=== PATIENT | female | born 1990 | race Caucasian/White ===

== ENCOUNTER 2024-07-22 11:01 | Day surgery (SDC) | payer OTHER ==
--- NOTE | 2024-07-22 11:26 | HP ---
PROCEDURE DATE: 07/22/2024 HISTORY OF PRESENT ILLNESS: Tae has had 2 bad episodes of nausea and vomiting and not eating for a week, pain in right upper quadrant, radiates to back. Had intermittent constipation during episodes. US showed cholelithiasis. Patient has history of gastric sleeve in the past. PAST MEDICAL HISTORY: Hyperlipidemia and hypertension. CURRENT MEDICATIONS: Lisinopril, Dyazide, atorvastatin, and Twirla. ALLERGIES: NKDA. PAST SURGICAL HISTORY: Had gastric sleeve surgery in the past. SOCIAL HISTORY: No smoking or alcohol abuse. REVIEW OF SYSTEMS: 12 systems reviewed. No chest pain or palpitations. Other systems negative or noncontributory other than above and per preadmission questionnaire. PHYSICAL EXAMINATION: Height 5'6", BMI 33. GENERAL: No acute distress. HEENT: Sclerae nonicteric. NECK: No JVD. CHEST: Equal excursion. Nonlabored breathing. CVS: Regular rate and rhythm. ABDOMEN: Soft. No peritoneal signs. EXTREMITIES: No cyanosis or edema. NEURO: Alert and oriented, moving extremities symmetrically. PSYCH: Appropriate mood and affect. SKIN: Dry. IMPRESSION: ACUTE EXACERBATION OF CHRONIC CHOLECYSTITIS, SYMPTOMATIC CHOLELITHIASIS. RECOMMEND CHOLECYSTECTOMY. Risks and benefits explained in detail, but not limited to, bleeding; infection; risk of trocar injury or hernia; risk of bile leak, bile duct injury, or retained stone or sludge possibly requiring endoscopic retrograde cholangiopancreatography or open procedure; risk of anesthesia, deep vein thrombosis, pulmonary embolism, or pneumonia; risks of aches, pains, bloating, constipation and/or loose stools possibly chronic in nature; possibly no improvement in pre-op symptoms possibly requiring further work-up, studies, endoscopy, or other studies or referrals. Will proceed with laparoscopic cholecystectomy, possible open as an outpatient. Otherwise, continue medication for hypertension and hyperlipidemia.
[2024-07-22 11:32] VITALS: RESP 16
[2024-07-22 11:32] LABS: HCG URINE TEST NEGATIVE (NEGATIVE)
[2024-07-22] MEDS ORDERED: MEFOXIN 2 GM PREMIX** 2 GM/50 ML ML IV ONE (11:45)
[2024-07-22] MEDS ORDERED: Lactated Ringers 1,000 ML IV ONE ×2 (11:46→14:31)
[2024-07-22] MEDS: Lactated Ringers 1,000 ML IV SCH (11:47)
[2024-07-22] MEDS: MEFOXIN 2 GM PREMIX** 2 GM/50 ML ML IV SCH (11:47)
[2024-07-22] MEDS ORDERED: Pepcid 20 MG VIAL IV ONE (12:06)
[2024-07-22] MEDS ORDERED: Transderm Scop 1.5MG Patch ONE (12:06)
[2024-07-22] MEDS ORDERED: Reglan 10 MG/2 ML ONE (12:06)
[2024-07-22 12:07] LABS: BASOPHIL % 0.9 % (0.1-1.2); Basophil (Absolute #) 0.05 x10^3/uL (0.01-0.08); Eosinophil % 2.2 % (0.7-5.8); Eosinophil (Absolute #) 0.12 x10^3/uL (0.04-0.36); Hematocrit 37.4 % (34.1-44.9); Hemoglobin 12.8 g/dL (11.2-15.7); IMMATURE GRAN # 0.01 x10^3u/L (0.001-0.031); IMMATURE GRAN % 0.2 % (0.001-0.429); Lymphocyte (Absolute #) 2.31 x10^3/uL (1.18-3.74); Lymphocytes % 41.6 % (19.3-51.7); Mean Corpuscular Hemoglobin 30.5 pg (25.6-32.2); Mean Corpuscular Hgb Concent. 34.2 g/dL (32.2-35.5); Mean Platelet Volume 9.9 fL (9.4-12.3); Monocyte (Absolute #) 0.46 x10^3/uL (0.24-0.86); Monocytes % 8.3 % (4.7-12.5); Neutrophil % 46.8 % (34.0-71.1); Platelet Count 357 x10^3/uL (182-369); Red Cell Distribution Width 13.3 % (11.7-14.4); White Blood Count 5.6 x10^3/uL (3.98-10.04)
[2024-07-22] MEDS: Pepcid 20 MG VIAL IV ONE (12:07)
[2024-07-22] MEDS: Transderm Scop 1.5MG Patch TOP PRN (12:07)
[2024-07-22] MEDS: Reglan 10 MG/2 ML IV ONE (12:07)
[2024-07-22] MEDS ORDERED: Sensorcaine 0.25% 10 ML ONE ×2 (13:04→14:00)
[2024-07-22] MEDS ORDERED: Zofran 4 MG/2 ML VIAL ONE (13:54)
[2024-07-22] MEDS ORDERED: Decadron 4 MG INJ ONE (13:54)
[2024-07-22] MEDS ORDERED: ROCURONIUM BROMIDE IV ONE (13:54)
[2024-07-22] MEDS ORDERED: Xylocaine-Mpf 2% 5 Ml Vial ONE (13:54)
[2024-07-22] MEDS ORDERED: BRIDION 200MG/2ML IV ONE (13:54)
[2024-07-22] MEDS ORDERED: TORAdol 30 mg Injection ONE ×2 (13:54→15:21)
[2024-07-22] MEDS ORDERED: SUBLIMAZE 100 MCG/2 ML ONE ×2 (13:54→15:26)
[2024-07-22] MEDS ORDERED: DIPRIVAN 200 MG/20 ML IV ONE (13:54)
[2024-07-22 14:06] LABS: ANION GAP 13.2 MEQ/L (5-15); Calcium 9.4 mg/dL (8.4-10.2); Creatinine 1 0.68 mg/dL (0.52-1.04); EST GLOMERULAR FILTRATION RATE 117.1 ML/MIN; Potassium 3.9 mmol/L (3.5-5.1)
[2024-07-22] MEDS ORDERED: Ephedrine Sulfate 50 MG/ML ONE (14:22)
[2024-07-22] MEDS ORDERED: MORPHINE SULFATE 2 MG INJ ONE (15:00)
[2024-07-22] MEDS ORDERED: Hydromorphone 1 mg/ml Injection ONE (15:26)
[2024-07-22 16:18] VITALS: O2SAT 100
[2024-07-22 16:27] VITALS: BP 108/72; PULSE 77; TEMP 97.2
--- NOTE | 2024-07-23 11:07 | OP ---
SURGERY DATE/TIME: 07/22/2024 [id number] PREOPERATIVE DIAGNOSIS: Exacerbation of chronic cholecystitis, symptomatic cholelithiasis. POSTOPERATIVE DIAGNOSIS: Exacerbation of chronic cholecystitis, symptomatic cholelithiasis. PROCEDURE: Laparoscopic cholecystectomy. SURGEON: Corby Ortega MD ANESTHESIA: General. ESTIMATED BLOOD LOSS: Minimal. INDICATIONS: As noted above. Risks and benefits were explained in detail, but not limited to. Consent obtained. DESCRIPTION OF PROCEDURE AND FINDINGS: The patient was taken to the operating room. General anesthesia was induced. Abdomen prepped and draped in usual sterile fashion after official time-out, no disagreement in planned procedure. A transverse incision was made at supraumbilical. Fascia grasped and pulled upward. Veress needle inserted. Tested with saline. Pneumoperitoneum accomplished insufflating from an opening pressure of 0-15. A 5 mm bladeless port and camera inserted without difficulty followed by two 5 mm right upper quadrant ports and 5 mm epigastric port. Gallbladder was grasped, had some omental adhesions up on it. She had had a prior gastric sleeve procedure. There was an omental adhesion up to the anterior abdominal wall. This was left alone as it was not directly in the way of the dissection. Dissection carried posterolateral to anterior fashion. LigaSure device was used to seal some omental oozing vessels. Slowly, carefully well skeletonized until critical view obtained both anteriorly and posteriorly. Once this was accomplished, cystic duct/cystic artery clipped x3 and divided in the usual fashion. Next, cystic artery clipped and divided usual fashion. The gallbladder was slowly, carefully dissected from its dense attachments to the liver bed staging directly on the gallbladder wall, clipping additional oozing side branches off the cystic artery/cystic vein directly as needed either with a clip or the LigaSure device as its was already open. Just prior to releasing it from its final attachments to the liver bed, the liver bed reinspected. Clips were noted to be in place in the cystic duct/cystic artery stumps. No signs of any active bleeding or bile leakage. It was felt there was no benefit from drain placement. Gallbladder was released from its final attachment and placed in provided sac and pulled up into the epigastrium. Fascia spread slightly with a clamp. The gallbladder pulled up. Decompressed some bile and moderately large stones and gallbladder pulled free in the bag and passed off. Puncture closure device was used to close this fascial defect with #1 Vicryl. copious amount of irrigation lateral to the liver and subhepatic space, irrigated clear. Liver bed reinspected. Clips noted to be in placed on cystic duct/cystic artery stump. No signs of any active bleeding or bile leakage. It was felt there was no benefit from drain placement.
== END 2024-07-22 16:38 | disposition home or self-care (01) ==
LOC: SDC 11:01
PROVIDERS: ATTEND Surgery
DX: K80.10 Calculus of gallbladder with chronic cholecystitis without obstruction (principal); E78.5 Hyperlipidemia, unspecified; I10 Essential (primary) hypertension; Z98.84 Bariatric surgery status
CPT/HCPCS: 36415; 80048; 81025; 85025; 93005; J0694; J1100; J1170; J1885; J2270; J2405; J2704; J3010; A9270-GY